=== PATIENT | female | born 1970 | race Caucasian/White ===

== ENCOUNTER 2017-03-25 17:09 | Emergency (ER) | payer OTHER ==
--- NOTE | 2017-03-25 17:31 | EDPHY ---
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 Patient was helping someone out of a bathtub who is covered in blood and got blood on her hands. She does not know of any known cuts however she does bite her nails. The incident happened earlier this afternoon. She has no rash. No pain. No treatment at home. Her tetanus shot is current. ROS: Denies numbness or tingling in her fingers, rash. Past Medical/Surgical History: Not obtained by nurse Social History: Single and lives in [place]. 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 No obvious cuts. She does bite her nails so her fingernails are very short. There is no redness or signs of cellulitis or infection. She is moving her extremities well. MDM/Departure - MDM ED Course/Re-evaluation: 46-year-old female presents to the emergency department after body fluid exposure. Laboratory studies on the patient including HIV, hepatitis-C, hepatitis-B are pending. The source patient is a patient in the emergency department and the source is blood has been drawn and sent. The nurse will inform patient of her laboratory results. She will have close follow-up with Occupational Health for the results of her hepatitis-B and hepatitis-C. - Depart Disposition: Home, Routine, Self-Care Clinical Impression: Patient exposure to body fluids Condition: Good Instructions: Body Substance Exposure (ED) Additional Instructions: Follow-up with Occupational Health as discussed. Referrals: Work Comp Ref/Restrictions [Outside] - As per Instructions
[2017-03-25 19:07] LABS: HEPATITIS B SURFACE ANTIBODY POSITIVE (NEGATIVE)
== END 2017-03-25 19:30 | disposition home or self-care (01) ==
DX: Z77.21 Contact with and (suspected) exposure to potentially hazardous body fluids (principal)
CPT/HCPCS: G0472